=== PATIENT | female | born 1995 | race Two or more races ===

== ENCOUNTER 2018-12-27 18:54 | Emergency (ER) | payer OTHER, MEDICAID ==
[~2018-12-27] VITALS: Ht 157.5 cm; Wt 56.7 kg
[2018-12-27] MEDS ORDERED: NKM (18:59)
--- NOTE | 2018-12-27 19:04 | NUR ---
ED Nurse Note: pt came to ed from home c/o of stiff neck for more than a week. per pt she has been feeling sick.
[2018-12-27 19:05] VITALS: BP 133/86
--- NOTE | 2018-12-27 19:20 | Emergency Room Report ---
History of Present Illness General Chief Complaint: Pain Source: Patient Present Illness HPI 23-year-old female presents to the emergency department complaining of 10 out of 10 in severity localized pain to the left side of the neck progressive over 2 weeks. Patient describes stiffness and difficulty turning her head to the left. Patient denies specific trauma or fall she denies strenuous activities. Patient denies headache, fevers, chills she does report some sore throat with nasal congestion that has been coming off and on for several weeks. She denies photophobia. Denies numbness tingling or loss of sensation or gross motor movements of the extremities, incontinence of bowel or bladder. Denies CP, Palpitations, LOC, AMS, dizziness, Changes in Vision, weakness or a sudden severe headache. Allergies: Coded Allergies: No Known Allergies (Unverified , 12/27/18) Patient History Past Medical History: see triage record Past Surgical History: none Pertinent Family History: none Last Menstrual Period: A MONTH AGO Reviewed Nursing Documentation: PMH: Agreed; PSxH: Agreed Nursing Documentation-PMH Past Medical History: No Stated History Review of Systems All Other Systems: negative except mentioned in HPI Physical Exam Vital Signs Date Time Temp Pulse Resp B/P (MAP) Pulse Ox O2 Delivery O2 Flow Rate FiO2 12/27/18 18:57 98.4 92 19 133/86 100 Room Air Sp02 EP Interpretation: reviewed, normal General Appearance: no apparent distress, alert, GCS 15, non-toxic, mild distress Head: normocephalic, atraumatic Eyes: bilateral eye normal inspection, bilateral eye PERRL ENT: hearing grossly normal, normal voice Neck: full range of motion, no meningismus, tender lateral - left Respiratory: lungs clear, normal breath sounds, speaking full sentences Cardiovascular #1: regular rate, rhythm Musculoskeletal: back normal, gait/station normal, normal range of motion, tender - TTP to the left sided paraspinal musculature in the cervical area and the SCM. Neurologic: alert, oriented x3, responsive, motor strength/tone normal, sensory intact, speech normal, grossly normal Psychiatric: judgement/insight normal Skin: normal color, no rash, warm/dry, well hydrated Medical Decision Making PA Attestation Dr. armenta is my supervising Physician whom patient management has been discussed with. Diagnostic Impression: Primary Impression: Cervical paraspinal muscle spasm ER Course 23-year-old female presents to the emergency department complaining of 10 out of 10 in severity localized pain to the left side of the neck progressive over 2 weeks. Patient describes stiffness and difficulty turning her head to the left. Patient denies specific trauma or fall she denies strenuous activities. Patient denies headache, fevers, chills she does report some sore throat with nasal congestion that has been coming off and on for several weeks. She denies photophobia. Denies numbness tingling or loss of sensation or gross motor movements of the extremities, incontinence of bowel or bladder. Denies CP, Palpitations, LOC, AMS, dizziness, Changes in Vision, weakness or a sudden severe headache. Ddx considered but are not limited to Fracture, dislocation, contusion, epidural abscess, Sprain/Strain/Spasm Vital signs: are WNL, pt. is afebrile H&PE are most consistent with muscle spasm, ORDERS: none required at this time. ED INTERVENTIONS: -Toradol IM -lidoderm TP DISCHARGE: At this time pt. is stable for d/c to home. Will provide printed patient care instructions, and any necessary prescriptions. Care plan and follow up instructions have been discussed with the patient prior to discharge. Last Vital Signs Date Time Temp Pulse Resp B/P (MAP) Pulse Ox O2 Delivery O2 Flow Rate FiO2 12/27/18 19:05 98.4 92 19 133/86 100 Room Air Disposition: HOME, SELF-CARE Condition: Stable Departure Forms: Return to Work Return to Work Date: Dec 31, 2018 Work Restrictions: No Heavy Lifting, No Prolonged Standing, Desk Work Only Other Restrictions: light duty x 1 week. May return Sooner if Symptoms have resolved. Return to Full Activity: Jan 03, 2019 Patient Instructions: Muscle Cramps and Spasms, Nows-un-Mwpi Additional Instructions: Take medications as directed. Follow up with a Primary Care Provider in 3-5 days, even if your symptoms have resolved. --Please review list of primary care clinics, if you do not already have a primary care provider Return sooner to ED if new symptoms occur, or current symptoms become worse. Do not drink alcohol, drive, or operate heavy machinery while taking Robaxin ( Muscle Relaxers) as this may cause drowsiness. - Please note that this Emergency Department Report was dictated using [employer] plant superintendent technology software, occasionally this can lead to erroneous entry secondary to interpretation by the dictation equipment. Monica Rios Dec 27, 2018 19:20
[2018-12-27] MEDS ORDERED: LIDODERM700 M1 TOPIC (19:25)
[2018-12-27] MEDS ORDERED: ROBAXIN-750750 MG PO (19:25)
[2018-12-27] MEDS ORDERED: IBUPROFEN600 MG ORAL (19:25)
[2018-12-27] MEDS ORDERED: Ketorolac 30mg Inj IM ONE (19:30)
[2018-12-27 19:40] VITALS: BP 133/86
--- NOTE | 2018-12-27 19:40 | NUR ---
ER DISCHARGE NOTE: Patient is cleared to be discharged per ERMD, pt is aox4, on room air, with stable vital signs. pt was given dc and prescription instructions, pt was able to verbalize understanding, pt id band removed. pt is able to ambulate with steady gait. pt took all belongings.
== END 2018-12-27 19:40 | disposition home or self-care (01) ==
LOC: EMR 19:10
DX: M62.838 Other muscle spasm (principal)
CPT/HCPCS: 96372; 99283; J1885